=== PATIENT | female | born 1930 | race Caucasian/White ===

== ENCOUNTER 2017-06-26 11:07 | Outpatient (CLI) | payer MEDICARE, BC | END 2017-06-26 11:08 | disposition home or self-care (01) | LOC: NAVSJIPCSP 11:07 | PROVIDERS: ATTEND Internal Medicine | DX: E03.9 Hypothyroidism, unspecified (principal) | CPT/HCPCS: 36415; 84443 ==

== ENCOUNTER 2017-07-10 10:09 | Emergency (ER) | payer MEDICARE, BC ==
[2017-07-10] MEDS ORDERED: Ondansetron HCl/PF 4 MG/2 ML Vial ONE ×2 (11:13→14:32)
[2017-07-10 11:45] LABS: Bilirubin Negative (Negative); Blood, Urine Trace (Negative); Clarity Clear (Clear); Glucose, Urine (Dipstick) 100 mg/dL (Negative); Leukocyte Negative (Negative); Nitrite Negative (Negative); Protein, Urine (Dipstick) 100 mg/dL (Neg-Trace); Urobilinogen 0.2 mg/dL (0.2-1.0); pH, Urine 5.5 (5.0-9.0)
[2017-07-10 11:52] LABS: CKMB 1.9 ng/mL (0-6.6); Troponin I 0.028 ng/mL (< 0.028)
[2017-07-10 11:53] LABS: ALT (SGPT) 84 U/L (8-55); AST (SGOT) 99 U/L (5-34); Albumin 3.4 g/dL (3.4-4.8); Alkaline Phosphatase 72 U/L (40-150); Anion Gap 18 mmol/L (10-20); BUN (Urea Nitrogen) 32 mg/dL (9.8-20.1); Bilirubin, Total 1.2 mg/dL (0.2-1.2); CK (CPK) 111 U/L (29-168); Calc. Creatinine Clearance 0 mL/min (70-130); Calcium 8.8 mg/dL (7.8-10.44); Carbon Dioxide 18 mmol/L (23-31); Chloride 108 mmol/L (98-107); Estimated GFR-MDRD 29; Globulin 2.8 g/dL (2.4-3.5); Glucose 237 mg/dL (83-110); Potassium 5.3 mmol/L (3.5-5.1); Protein, Total 6.2 g/dL (6.0-8.3); Sodium 139 mmol/L (136-145)
[2017-07-10 11:59] LABS: RBC/HPF 0-3 HPF (0-3); WBC/HPF 0-3 HPF (0-3)
[2017-07-10 12:00] LABS: Bacteria/HPF 1+ HPF (None Seen); Crystals/HPF 1+ AMORPH PHOS HPF (Negative); Other Casts/LPF 0-3 MIXED CASTS LPF (0-3 Hyaline); Other Microscopic Description NO
[2017-07-10] MEDS ORDERED: Promethazine HCl 25 MG/ML VIAL ONE ×2 (12:13→13:03)
[2017-07-10 12:14] LABS: Hemoglobin 12.1 g/dL (12.0-16.0); MDiff Complete? YES; Mean Corpuscular HGB CONC 31.6 g/dL (32.0-36.0); Mean Corpuscular Hemoglobin 29.4 pg (27.0-31.0); Mean Corpuscular Volume 92.9 fl (81.0-99.0); Mean Platelet Volume 7.5 fL (7.4-10.4); Platelet Count 210 thou/uL (130-400); RBC Distribution Width 13.5 % (11.5-14.5); Red Blood Cell (RBC) Count 4.13 mill/uL (4.20-5.40); White Blood Cell (WBC) Count 22.2 thou/uL (4.8-10.8)
[2017-07-10 12:15] LABS: Band 8 % (5-11); Lymphocytes 12 % (21-51); Monocytes 2 % (0-10); Neutrophil 78 % (42-75); PLT Morphology Comment Appears Adequate
--- NOTE | 2017-07-11 07:42 | CT ---
NONCONTRAST ENHANCED CT OF CHEST: Date: 07/10/17 HISTORY: Hypotension. TECHNIQUE: Noncontrast enhanced CT of the chest performed. FINDINGS: Exam is limited due to the fact that IV contrast was not given. There is a large ascending aortic aneurysm involving the ascending and descending aortic arch. The a scending aorta has diameter of up to 6.7 cm, while the descending aorta has areas of aneurysmal dila tation measuring up to 5.6 cm. There is a large pericardial effusion or pericardial hematoma due to the density of the pericardial fluid. Extensive fibrotic changes seen throughout the lungs and lung bases. There is honeycombing of the right and left lung bases. IMPRESSION: Massive enlarged ascending aorta concerning for ascending and descending aortic aneurysm. There is h yperdense pericardial effusion concerning for a pericardial hematoma. POS: [facility]
--- NOTE | 2017-07-11 07:43 | CT ---
NONCONTRAST ENHANCED CT IMAGES ABDOMEN AND PELVIS: History: Nausea, vomiting, elevated creatinine. FINDINGS: Images demonstrate a massively dilated ascending aorta measuring up to 6.6 cm. Please see accompanyi CT chest report. The liver and spleen are grossly unremarkable. Evaluation is limited due to the fact that IV contras t and oral contrast was not given. There may be some gallbladder thickening and inflammatory change, correlate with gallbladder sonographically if clinically indicated. No dilated loops of small bowel seen. Atherosclerotic calcification of the abdominal aorta and iliac arteries seen. No evidence of periaortic lymphadenopathy seen. IMPRESSION: Thoracic aortic dilatation. Please see dictation of chest CT on this patient. POS: [facility]
== END 2017-07-10 14:48 | disposition short-term general hospital (02) ==
LOC: NAV ERS 10:09
DX: K52.9 Noninfective gastroenteritis and colitis, unspecified (principal); I31.3 Pericardial effusion (noninflammatory); I71.2 Thoracic aortic aneurysm, without rupture; I25.10 Atherosclerotic heart disease of native coronary artery without angina pectoris; E11.9 Type 2 diabetes mellitus without complications; E03.9 Hypothyroidism, unspecified; E78.5 Hyperlipidemia, unspecified; I10 Essential (primary) hypertension; J44.9 Chronic obstructive pulmonary disease, unspecified; Z79.899 Other long term (current) drug therapy
CPT/HCPCS: 36415; 71250; 74176; 80053; 81001; 82550; 82553; 83605; 84484; 85025; 87086; 96361; 96374; 96375; 96376; A4353; J2405; J2550